=== PATIENT | female | born 1950 | race Caucasian/White ===

== ENCOUNTER 2022-06-27 09:40 | Emergency (ER) | payer OTHER, MEDICARE ==
[2022-06-27 09:50] VITALS: BP 135/80; PULSE 85; RESP 18; TEMP 97.7; BMI 22.9
[2022-06-27] MEDS ORDERED: ASPIRIN 81 MG CHEWABLE TABLETS PO ONE (10:23)
[2022-06-27] MEDS ORDERED: ASPIRIN 81 MG CHEWABLE TABLETS ONE (10:33)
[2022-06-27 10:50] LABS: BASO % 1.6 % (0-2.0); EOS % 0.7 % (0-4.5); HEMATOCRIT 37.2 % (32.4-45.2); HEMOGLOBIN 12.2 GM/dL (10.7-15.3); LYMPH % 23.2 % (8-40); MCH 22.7 pg (25.7-33.7); MCHC 32.9 g/dl (32.0-36.0); MONO % 11.7 % (3.8-10.2); NEUT % 62.8 % (42.8-82.8); PLATELET COUNT 232 10^3/uL (134-434); RDW 16.4 % (11.6-15.6); WHITE BLOOD COUNT 3.9 K/mm3 (4.0-10.0)
[2022-06-27 10:59] LABS: INR 0.89 (0.83-1.09); PROTHROMBIN TIME (PATIENT) 10.3 SEC (9.7-13.0)
[2022-06-27 11:02] LABS: ACTIVATED PTT 27.4 SECONDS (25.2-36.5)
[2022-06-27] MEDS ORDERED: DIPHTH,PERTUSS(ACELL),TET 0.5 ML DISP.SYRIN IM ONE ×3 (11:12→12:06)
[2022-06-27 11:59] LABS: CALCIUM 9.2 mg/dL (8.5-10.1)
[2022-06-27 12:00] LABS: ALBUMIN 3.9 g/dl (3.4-5.0); BLOOD UREA NITROGEN 29.5 mg/dL (7-18)
[2022-06-27 12:03] LABS: CREATININE 0.8 mg/dL (0.55-1.3)
[2022-06-27 12:04] LABS: BILIRUBIN,TOTAL 0.4 mg/dL (0.2-1)
[2022-06-27 12:08] LABS: N-TERMINAL BNP 145.7 pg/ml (5-125)
[2022-06-27 12:40] LABS: EPI CELLS 13 /uL (0-25.1); HYALINE CASTS 1 /uL (0-3.1); URINE APPEARANCE CLEAR; URINE BACTERIA 10 /uL (0-1359); URINE BILIRUBIN NEGATIVE (NEGATIVE); URINE COLOR YELLOW; URINE GLUCOSE (UA) NEGATIVE (NEGATIVE); URINE KETONE NEGATIVE (NEGATIVE); URINE LEUK ESTERASE 2+ (NEGATIVE); URINE NITRITE NEGATIVE (NEGATIVE); URINE PROTEIN NEGATIVE (NEGATIVE); URINE RBC 6 /uL (0-23.9); URINE UROBILINOGEN 0.2 mg/dL (0.2-1.0); URINE WBC 80 /uL (0-25.8)
== END 2022-06-27 13:59 | disposition home or self-care (01) ==
LOC: JER 09:40
PROC: 3E0234Z Introduction of Serum, Toxoid and Vaccine into Muscle, Percutaneous Approach (ICD-10-PCS; principal; 2022-06-27)
DX: M71.21 Synovial cyst of popliteal space [Baker], right knee (principal); R00.2 Palpitations; R22.43 Localized swelling, mass and lump, lower limb, bilateral
CPT/HCPCS: 36415; 71046-TC-FY; 80053; 81003; 83735; 83880; 84484; 85025; 85379; 85610; 85730; 90471; 90715; 93005; 93010; 93970-TC; 99285-25

== ENCOUNTER 2023-03-11 16:09 | Emergency (ER) | payer OTHER, MEDICARE ==
[2023-03-11 16:27] VITALS: BP 127/70; PULSE 87; RESP 18; TEMP 97.8; BMI 22.6
[2023-03-11] MEDS ORDERED: SODIUM CHLORIDE 0.9% 500 ML INFUS.BAG IV ONE (16:44)
[2023-03-11 18:14] LABS: BASO % 1.4 % (0-2.0); EOS % 1.1 % (0-4.5); HEMATOCRIT 36.5 % (32.4-45.2); HEMOGLOBIN 11.9 GM/dL (10.7-15.3); LYMPH % 13.5 % (8-40); MCH 22.4 pg (25.7-33.7); MCHC 32.5 g/dl (32.0-36.0); MEAN CELL VOLUME 68.7 fl (80-96); MEAN PLT VOLUME 9.6 fl (7.5-11.1); MONO % 12.4 % (3.8-10.2); NEUT % 71.6 % (42.8-82.8); PLATELET COUNT 220 10^3/uL (134-434); RBC 5.31 M/mm3 (3.60-5.2); RDW 16.1 % (11.6-15.6); WHITE BLOOD COUNT 6.5 K/mm3 (4.0-10.0)
[2023-03-11 18:24] LABS: INR 0.95 (0.83-1.09)
[2023-03-11 19:01] LABS: POTASSIUM 4.4 mmol/L (3.5-5.1)
[2023-03-11 19:02] LABS: CALCIUM 9.1 mg/dL (8.5-10.1)
[2023-03-11 19:03] LABS: ALBUMIN 3.9 g/dl (3.4-5.0); BLOOD UREA NITROGEN 22.9 mg/dL (7-18); MAGNESIUM 2.2 mg/dL (1.8-2.4)
[2023-03-11 19:06] LABS: CREATININE 0.9 mg/dL (0.55-1.3)
[2023-03-11 19:07] LABS: BILIRUBIN,TOTAL 0.4 mg/dL (0.2-1); TOT PROT 6.5 g/dl (6.4-8.2)
== END 2023-03-11 21:01 | disposition home or self-care (01) ==
LOC: JER 16:09
DX: R07.89 Other chest pain (principal); R42 Dizziness and giddiness; R61 Generalized hyperhidrosis; E16.2 Hypoglycemia, unspecified; Z20.822 Contact with and (suspected) exposure to COVID-19
CPT/HCPCS: 0241U-QW; 36415; 71046-TC-FY; 80053; 82962; 83735; 84443; 84484; 85025; 85610; 93005; 93010; 99285-25

== ENCOUNTER 2023-09-01 16:03 | Emergency (ER) | payer OTHER, MEDICARE ==
[2023-09-01 16:44] VITALS: TEMP 97.8; BMI 28.2
[2023-09-01 17:01] LABS: BASO % 1.8 % (0-2.0); EOS % 2.1 % (0-4.5); HEMATOCRIT 40.4 % (32.4-45.2); HEMOGLOBIN 13.1 GM/dL (10.7-15.3); LYMPH % 16.9 % (8-40); MCH 22.6 pg (25.7-33.7); MCHC 32.5 g/dl (32.0-36.0); MEAN CELL VOLUME 69.7 fl (80-96); MEAN PLT VOLUME 10.3 fl (7.5-11.1); MONO % 12.4 % (3.8-10.2); NEUT % 66.8 % (42.8-82.8); PLATELET COUNT 220 10^3/uL (134-434); RBC 5.79 M/mm3 (3.60-5.2); RDW 15.8 % (11.6-15.6); WHITE BLOOD COUNT 3.9 K/mm3 (4.0-10.0)
[2023-09-01 17:07] LABS: INR 0.97 (0.83-1.09); PROTHROMBIN TIME (PATIENT) 11.3 SEC (9.7-13.0)
[2023-09-01 17:09] LABS: ACTIVATED PTT 29.5 SECONDS (25.2-36.5)
[2023-09-01 17:19] LABS: POTASSIUM 4.6 mmol/L (3.5-5.1)
[2023-09-01 17:21] LABS: CALCIUM 9.5 mg/dL (8.5-10.1)
[2023-09-01 17:22] LABS: ALBUMIN 4.1 g/dl (3.4-5.0)
[2023-09-01 17:23] LABS: BLOOD UREA NITROGEN 15.4 mg/dL (7-18)
[2023-09-01 17:25] LABS: CREATININE 0.8 mg/dL (0.55-1.3)
[2023-09-01 17:26] LABS: TOT PROT 6.9 g/dl (6.4-8.2)
[2023-09-01 17:27] LABS: BILIRUBIN,TOTAL 0.9 mg/dL (0.2-1)
[2023-09-01] MEDS ORDERED: ACETAMINOPHEN INJECTION 100 ML IVPB ONE (17:52)
[2023-09-01] MEDS ORDERED: ATORVASTATIN CA 80 MG TABLET (FP) ONE (17:59)
[2023-09-01] MEDS ORDERED: ASPIRIN 325 MG TABLET ONE (18:00)
[2023-09-01] MEDS ORDERED: CLOPIDOGREL BISULFATE 75 MG TABLET (FP) ONE (18:00)
[2023-09-01] MEDS: ACETAMINOPHEN 1000 MG/100 ML BAG IVPB ONE (18:05)
[2023-09-01] MEDS: ASPIRIN 325 MG TABLET PO ONE (18:06)
[2023-09-01] MEDS: ATORVASTATIN CA 80 MG TABLET (FP) PO ONE (18:06)
[2023-09-01] MEDS: CLOPIDOGREL BISULFATE 75 MG TABLET (FP) PO ONE (18:06)
[2023-09-01 20:11] VITALS: BP 140/60; PULSE 68; RESP 16
== END 2023-09-01 20:14 | disposition home or self-care (01) ==
LOC: JER 16:03
PROC: 3E030NZ Introduction of Analgesics, Hypnotics, Sedatives into Peripheral Vein, Open Approach (ICD-10-PCS; principal; 2023-09-01)
DX: G45.9 Transient cerebral ischemic attack, unspecified (principal); R47.01 Aphasia; I10 Essential (primary) hypertension
CPT/HCPCS: 36415; 70450-TC; 80053; 80061; 82550; 82962; 83036; 84484; 85025; 85610; 85730; 86850; 86900; 86901; 93005; 93010; 93880-TC; 99285-25; J0131